=== PATIENT | female | born 1995 | race Caucasian/White ===

== ENCOUNTER 2023-01-01 19:57 | Emergency (ER) | payer OTHER, MEDICAID, SELFPAY ==
[2023-01-01 20:07] VITALS: BP 119/73; PULSE 80; RESP 18; TEMP 36.8; O2SAT 98; BMI 35.2
[2023-01-01 20:49] LABS: Add Manual Diff / Slide Review NO; Basophils Absolute Auto 100 /uL (0-100); Basophils Percent Auto 1.2 % (0-2); Eosinophils Absolute Auto 200 /uL (0-450); Eosinophils Percent Auto 3.1 % (2-4); Hematocrit 37.4 % (36-46); Hemoglobin 12.7 g/dL (12.0-16.0); Lymphocytes Absolute Auto 1200 /uL (1100-4500); Lymphocytes Percent Auto 15.7 % (25-40); Mean Corpuscular Hemoglobin 28.5 PG (26-34); Mean Corpuscular Volume 83.9 fL (80-100); Monocytes Absolute Auto 600 /uL (0-900); Neutrophils Absolute Auto 5400 /uL (1500-7000); Platelet Count 263 X10^3/uL (150-400); Red Blood Cell Count 4.46 X10^6/uL (4.0-5.2); White Blood Cell Count 7.5 X10^3/uL (4.5-11.0)
[2023-01-01 20:53] LABS: Bacteria Urine Occasional (0-1); Culture Indicated Urine Cult Not Indicated; RBC Urine None Seen (0-5/HPF); Squamous Epithelial Cell Urine 0-1 /HPF (0-5/HPF); WBC Urine 0-1/HPF (0-5/HPF)
[2023-01-01 21:02] LABS: Alanine Aminotransferase 20 IU/L (<35); Albumin 3.9 g/dL (3.5-5.0); Albumin Globulin Ratio 1.1 (1.0-2.8); Alkaline Phosphatase 95 U/L (38-126); Aspartate Aminotransferase 19 IU/L (14-36); BUN Creatinine Ratio 14.3 (6-22); Bilirubin Total 0.1 mg/dL (0.2-1.3); Blood Urea Nitrogen 8 mg/dL (7-17); Carbon Dioxide 26 mmol/L (22-32); Chloride 103 mmol/L (98-107); Estimated Glomerular Filt Rate > 60 mL/min (>60); Globulin 3.5 g/dL (1.7-4.1); Glucose 95 mg/dL (70-100); HEMOLYSIS < 15 (0-50); Lipase 41 U/L (23-300); Potassium 3.9 mmol/L (3.4-5.1); Sodium 133 mmol/L (137-145); Total Protein 7.4 g/dL (6.3-8.2)
[2023-01-02 00:14] VITALS: BP 126/72; PULSE 67; RESP 16; O2SAT 99
--- NOTE | 2023-01-02 00:17 | PC.NURSE ---
Pt with complaints of intermittent abdominal pain with n/v x1 week. Pt reports she has been constipated x3 days and took ducolax and tums today. pepto yesterday. Pt has been noting black diarrhea stools today. Pt has been tolerating gatorade and crackers while waiting.
--- NOTE | 2023-01-02 02:14 | ED_ITS ---
HPI - Nausea/Vomiting/Diarrhea General Chief complaint: Nausea/Vomiting/Diarrhea Stated complaint: Nausea and vomiting, black stool x1week Time Seen by Provider: 01/02/23 02:13 Source: patient Mode of arrival: Ambulatory Limitations: no limitations History of Present Illness HPI Narrative: This is a 27-year-old female on methadone. Patient presents with complaint of epigastric discomfort and generalized abdominal pain she states she is had some nausea vomiting intermittently for the past several days. She is had constipation took Pepto, several other [id number] medications and has since had diarrhea. She is had black stool she says for the past 3 days. Patient states they were more formed yesterday the day before and are looser today. No blood is appreciated. Patient denies fevers or chills. No chest pain or shortness of breath, no lightheadedness. She denies dysuria, urgency or frequency. Patient denies vaginal bleeding or discharge. She states she has not had similar issues in the past. States she does take a lot of Tums and gets reflux frequently. She is not on a PPI. She is never had a colonoscopy or endoscopy. She states her only medication is methadone. She does smoke, o ccasional alcohol but not regularly. Denies any recreational illicit drug use currently. Related Data Previous Rx's Medication Instructions Recorded famotidine 40 mg tablet (Pepcid) 40 mg PO DAILY #45 tabs 01/02/23 Allergies Allergy/AdvReac Type Severity Reaction Status Date / Time No Known Drug Allergies Allergy Verified 01/01/23 20:07 Review of Systems Review of Systems ROS Unobtainable: All systems reviewed & are unremarkable except as noted in HPI and below Patient History Social History Smoking Status: Current every day smoker Smoking Status: Current every day smoker tobacco type: cigarettes Substance Use Type: does not use Exam Narrative Exam Narrative: GENERAL: Alert and oriented x three, female in mild distress. HEENT: Head normocephalic, atraumatic, EOMI, pupils reactive, no conjunctival pallor, face symmetric, moist mucous membranes NECK: Supple, full range of motion CARDIOVASCULAR: Regular rate and rhythm without murmurs, rubs or gallops. RESPIRATORY: Breath sounds equal bilaterally, no wheezes rales or rhonchi. ABDOMEN: Soft, nontender. Nondistended. Normoactive bowel sounds all 4 quadrants. No guarding or rebound, rigidity, no mass, patient politely defers rectal exam. : No CVA tenderness EXTREMITIES: Normal range of motion, no clubbing or edema. Neurovascularly in tact NEUROLOGICAL: Cranial nerves II through XII grossly intact. Moving all extremities SKIN: Warm, dry, no petechiae, no rashes or lesions. Initial Vital Signs Initial Vital Signs: Vital Signs Temperature 98.2 F 01/01/23 20:07 Pulse Rate 80 01/01/23 20:07 Respiratory Rate 18 01/01/23 20:07 Blood Pressure 119/73 01/01/23 20:07 Pulse Oximetry 98 01/01/23 20:07 Oxygen Delivery Method Room Air 01/01/23 20:07 Course Orders Ordered: Discontinued Medications Ondansetron HCl (Ondansetron 4 Mg Odt) 4 mg PO NOW PRN PRN Reason: Nausea And Vomiting Last Admin: 01/02/23 02:57 Dose: 4 mg Documented By: Ondansetron HCl (Ondansetron 4 Mg/2 Ml Inj) 4 mg IV NOW PRN PRN Reason: Nausea And Vomiting Ondansetron HCl (Ondansetron 4 Mg Odt Prepack) 1 bottle [facility] [place] [facility] ONE Stop: 01/02/23 02:48 Last Admin: 01/02/23 02:57 Dose: 1 bottle Documented By: Vital Signs Vital signs: Vital Signs - 8 hr 01/01/23 20:07 01/02/23 00:14 Temperature 98.2 F Pulse Rate 80 67 Respiratory Rate 18 16 Blood Pressure 119/73 126/72 Pulse Oximetry 98 99 Oxygen Delivery Method Room Air Room Air MDM - Nausea/Vomiting/Diarrhea Lab Data 01/01/23 20:15 01/01/23 20:15 Labs: Lab Results 01/01/23 01/01/23 01/01/23 Range/Units 20:15 20:15 20:35 WBC 7.5 (4.5-11.0) X10^3/uL RBC 4.46 (4.0-5.2) X10^6/uL Hgb 12.7 (12.0-16.0) g/dL Hct 37.4 (36-46) % MCV 83.9 (80-100) fL MCH 28.5 (26-34) PG MCHC 34.0 (30-36) % RDW 14.0 (11.6-14.8) % Plt Count 263 (150-400) X10^3/uL Neut % (Auto) 72.0 (50-75) % Lymph % (Auto) 15.7 L (25-40) % [place] % (Auto) 8.0 (3-14) % Eos % (Auto) 3.1 (2-4) % Baso % (Auto) 1.2 (0-2) % Neut # (Auto) 5400 (6419-8041) /uL Lymph # (Auto) 1200 (3740-6534) /uL [place] # (Auto) 600 (0-900) /uL Eos # (Auto) 200 (0-450) /uL Baso # (Auto) 100 (0-100) /uL Sodium 133 L (137-145) mmol/L Potassium 3.9 (3.4-5.1) mmol/L Chloride 103 (98-107) mmol/L Carbon Dioxide 26 (22-32) mmol/L BUN 8 (7-17) mg/dL Creatinine 0.56 (0.52-1.04) mg/dL Estimated GFR > 60 (>60) mL/min BUN/Creatinine Ratio 14.3 (6-22) Glucose 95 (70-100) mg/dL Calcium 8.0 L (8.4-10.2) mg/dL Total Bilirubin 0.1 L (0.2-1.3) mg/dL AST 19 (14-36) IU/L ALT 20 (<35) IU/L Alkaline Phosphatase 95 (38-126) U/L Total Protein 7.4 (6.3-8.2) g/dL Albumin 3.9 (3.5-5.0) g/dL Globulin 3.5 (1.7-4.1) g/dL Albumin/Globulin Ratio 1.1 (1.0-2.8) Lipase 41 (23-300) U/L Urine RBC None seen (0-5/HPF) Urine WBC 0-1/hpf (0-5/HPF) Ur Squamous Epith Cells 0-1 /hpf (0-5/HPF) Urine Bacteria Occasional (0-1) (None) Ur Culture Indicated? Cult not indicated Point of Care Testing Test Results Negative Urine Dip Bedside Urine Glucose Negative Bedside Urine Bilirubin - Negative Bedside Urine Ketone - Negative Urine Specific [place] 1.005 Bedside Urine Occult Blood +/- Bedside Urine pH 6.5 Bedside Urine Protein - Negative Bedside Urine Urobilinogen - Negative Bedside Urine Nitrite - Negative Bedside Urine Leukocytes - Negative Esterase MDM Narrative Medical decision making narrative: This is a 27-year-old female presents with complaint of nausea vomiting patient was eating goldfish in the waiting room and has not had any emesis in the department. She is had black stool she states for 3 days, had reported to n [facility] staff a week. She has had Pepto at some point this might be contributing she does not take iron. She has had some chronic reflux and sometimes epigastric discomfort. She is not on a PPI. Patient is hemodynamically stable. She deferred rectal exam for stool guaiac. CBC is negative, CMP shows a sodium of 133, normal potassium normal renal function and bilirubin 0.1 with otherwise normal LFTs and lipase. Negative for . No clear signs of infection in urine. Patient's exam is overall benign with a benign abdominal exam. Discussed with patient wound recommend stool guaiac she politely defers, recommend follow-up for EGD or possibly colonoscopy if that is negative. We dis cussed CT imaging but patient has been tolerating orals in the department with dark stools for several days with otherwise normal exam and labs and defers further workup. Plan for ppi, prepack for Zofran and return precautions with referral to General surgery or patient prefers she can follow up with gastroenterology. Patient feels comfortable with this plan. Discharge Plan Departure Patient Disposition: Home Clinical Impression: Black stool Activity Restrictions/Additional Instructions: Please follow-up with General surgery Gastroenterology for evaluation and possible EGD and/or colonoscopy. I would recommend taking Pepcid 40 mg once daily. Prescription has been printed but you can feel this [id number] as well. Please return for fevers, new or worsening abdominal pain, persistent vomiting, persistent black or bloody stools, lightheadedness or passing out or other new or concerning changes. Prescriptions: New famotidine [Pepcid] 40 mg tablet 40 mg PO DAILY Qty: 45 0RF Referrals: Donovan Posey MD [Physician] - Stand Alone Forms: Patient Portal/API
[2023-01-02] MEDS: ONDANSETRON 4 MG ODT PREPACK 1 BOTTLE MISC (02:57)
[2023-01-02] MEDS: ONDANSETRON 4 MG ODT PO (02:57)
[2023-01-02 03:03] VITALS: BP 124/78; PULSE 63; RESP 16; O2SAT 99
== END 2023-01-02 03:04 | disposition home or self-care (01) ==
PROVIDERS: Emergency Provider Emergency Medicine
DX: K92.1 Melena (principal); R11.2 Nausea with vomiting, unspecified; R10.84 Generalized abdominal pain
CPT/HCPCS: 36415; 80053; 81003; 81015; 81025; 83690; 85025; 99283